=== PATIENT | female | born 1955 | race Hispanic/Latino ===

== ENCOUNTER 2017-04-06 11:16 | Outpatient (CLI) | payer BC, OTHER | END 2017-04-06 11:17 | disposition home or self-care (01) | LOC: BICMAMMO 11:16 | PROVIDERS: ATTEND Family Medicine | DX: Z12.31 Encounter for screening mammogram for malignant neoplasm of breast (principal) | CPT/HCPCS: 77063; 77067 ==

== ENCOUNTER 2018-06-05 08:01 | Outpatient (CLI) | payer OTHER ==
--- NOTE | 2018-06-05 08:43 | MMO ---
Bilateral MAMMO Bilat Screen [facility]. CLINICAL HISTORY: Patient is 62 years old and is seen for screening. The patient has no family history of breast cancer. The patient has no personal history of cancer. VIEWS: The views performed were: bilateral craniocaudal with tomosynthesis and bilateral mediolateral oblique with tomosynthesis. FILMS COMPARED: The present examination has been compared to prior imaging studies performed at [facility] on 10/30/2006, at [facility] on 10/19/2005, 05/14/2008, 09/17/2009, 04/04/2011, 07/19/2012, 09/10/2014, 09/13/2015 and 04/06/2017, and at [facility] on 03/24/2003 and 08/10/2004. MAMMOGRAM FINDINGS: There are scattered fibroglandular densities. There is a stable round mass with circumscribed margins seen in the right breast. There are no suspicious masses, suspicious calcifications, or new areas of architectural distortion. IMPRESSION: THERE IS NO MAMMOGRAPHIC EVIDENCE OF MALIGNANCY. A ROUTINE FOLLOW-UP MAMMOGRAM IN 1 YEAR IS RECOMMENDED. THE RESULTS OF THIS EXAM WERE SENT TO THE PATIENT. ACR BI-RADS Category 2 - Benign finding MAMMOGRAPHY NOTE: 1. A negative mammogram report should not delay a biopsy if a dominant of clinically suspicious mass is present. 2. Approximately 10% to 15% of breast cancers are not detected by mammography. 3. Adenosis and dense breasts may obscure an underlying neoplasm.
--- NOTE | 2018-06-05 09:22 | RAD ---
TWO VIEWS OF THE CHEST: DATE: 06/05/2018. COMPARISON: None. HISTORY: Cough, bronchitis. FINDINGS: No pneumothorax or pleural fluid. No focal consolidation or alveolar edema. Heart and mediastinal c ontours appear grossly unremarkable. Incompletely imaged cervical hardware is present. IMPRESSION: No acute findings. POS: [facility]
--- NOTE | 2018-06-05 09:28 | BD ---
DEXA BONE DENSITY SCAN: DATE: 06/05/2018. COMPARISON: 08/28/2011. HISTORY: A 62-year-old postmenopausal female undergoing evaluation for osteoporosis. FINDINGS: Lumbar Spine: BMD (g/cm2) L1 0.937 T-Score: -0.5, previous -0.3 L2 0.951 T-Score: -0.7, previous 0.2 L3 1.075 T-Score: -0.1, previous 0.1 L4 1.064 T-Score: 0.0, previous 1.1 L1-L4 1.010 T-Score: -0.3, previous 0.3 Femoral Neck: 0.676 T-Score: -1.6, previous -1.3 Total Femur: 0.958 T-Score: 0.1, previous -0.8 FRAX-WHO fracture risk assessment tool reports a 10-year fracture risk of 16% for major osteoporotic fracture and 0.8% for hip fracture in an untreated patient. Impression: Femoral neck osteopenia, correlating with a moderately increased risk for fracture. POS: [facility]
== END 2018-06-05 08:02 | disposition home or self-care (01) ==
LOC: BICMAMMO 08:01
PROVIDERS: ATTEND Family Medicine
DX: Z12.39 Encounter for other screening for malignant neoplasm of breast (principal); Z13.820 Encounter for screening for osteoporosis; R05 Cough; J02.9 Acute pharyngitis, unspecified; M85.859 Other specified disorders of bone density and structure, unspecified thigh; N63.10 Unspecified lump in the right breast, unspecified quadrant
CPT/HCPCS: 71046; 77063; 77067; 77080

== ENCOUNTER 2020-08-03 15:52 | Outpatient (CLI) | payer OTHER | END 2020-08-03 15:53 | disposition home or self-care (01) | LOC: BICMAMMO 15:52 | PROVIDERS: ATTEND Family Medicine | DX: Z12.31 Encounter for screening mammogram for malignant neoplasm of breast (principal) | CPT/HCPCS: 77063; 77067 ==